=== PATIENT | male | born 1950 | race African-American/Black ===

== ENCOUNTER 2017-03-10 20:30 | Emergency (ER) | payer SELFPAY ==
[~2017-03-10] VITALS: Ht 185.4 cm; Wt 81.6 kg
[2017-03-10 20:30] VITALS: BP 130/89
--- NOTE | 2017-03-10 21:10 | Emergency Room Report ---
History of Present Illness General Chief Complaint: Alcohol Intoxication Source: Patient, EMS Present Illness HPI 66-year-old male brought in by EMS for "being cold" EMS states patient intoxicated however patient is alert and oriented, and ambulating with steady gait Patient refuses to provide additional history of present illness aside from repeating "I'm cold." When I continue to progress patient on additional information patient states "I' ll kick your ass." Patient then threatend to kill me. At this point, patient was escorted from EMR for threatening a physician. Allergies: Coded Allergies: PENICILLINS (Verified Allergy, Unknown, 03/10/17) Patient History Past Medical History: unable to obtain Past Surgical History: unable to obtain Pertinent Family History: unable to obtain Nursing Documentation-PMH Hx Hypertension: Yes History Of Psychiatric Problem: Yes Review of Systems All Other Systems: negative except mentioned in HPI Physical Exam Vital Signs Date Time Temp Pulse Resp B/P (MAP) Pulse Ox O2 Delivery O2 Flow Rate FiO2 03/10/17 20:25 98.4 58 20 138/92 98 Room Air Sp02 EP Interpretation: reviewed, normal General Appearance: normal inspection, well appearing, no apparent distress, alert, GCS 15, non-toxic, other - sleeping comfortably in stretcher Head: normocephalic, atraumatic Eyes: bilateral eye PERRL, bilateral eye EOMI ENT: normal ENT inspection, hearing grossly normal, normal pharynx, no angioedema, normal voice, TMs + canals normal, uvula midline, moist mucus membranes Neck: normal inspection, full range of motion, supple, thyroid normal, no meningismus, no bony tend Respiratory: normal inspection, lungs clear, normal breath sounds, no rhonchi, no respiratory distress, no retraction, no accessory muscle use, no wheezing, speaking full sentences Cardiovascular #1: regular rate, rhythm, no edema, no JVD, normal capillary refill Gastrointestinal: normal inspection, normal bowel sounds, non tender, soft, no mass, no peritonitis, non-distended, no guarding, no hernia, no pulsatile mass Genitourinary: no CVA tenderness Musculoskeletal: normal inspection, back normal, normal range of motion, no calf tenderness, pelvis stable, Nato's Sign negative Neurologic: normal inspection, alert, oriented x3, responsive, time study observer III-XII nml as tested, motor strength/tone normal, cerebellar normal, normal gait, speech normal Psychiatric: normal inspection, judgement/insight normal, mood/affect normal, no suicidal/homicidal ideation, no delusions Skin: normal inspection, normal color, no rash Lymphatic: normal inspection, no adenopathy Medical Decision Making Diagnostic Impression: Primary Impression: Malingerer Additional Impression: Threatening to others ER Course 66-year-old male likely malingering for stretcher Vital signs stable, afebrile Patient escorted from ER after threatening provider History of present illness and physical exam and assessment Limited due to patient's not cooperating and threatening demeanor ER course: Patient has remained stable during ED stay. Disposition: Patient is to be discharged to home. Patient is instructed to follow up with their primary care doctor within 5 days. Strict return precautions discussed with patient such as fever, chills, worsening/severe pain, nausea, vomiting, which may indicate severe illness. Patient verbalizes understanding and agrees with plan. Please note that this Emergency Department Report was dictated using [employer] application supervisor technology software, occasionally this can lead to erroneous entry secondary to interpretation by the dictation equipment Last Vital Signs Date Time Temp Pulse Resp B/P (MAP) Pulse Ox O2 Delivery O2 Flow Rate FiO2 03/10/17 20:25 98.4 58 20 138/92 98 Room Air Status: improved Disposition: HOME, SELF-CARE Condition: Improved Patient Instructions: Medical Screening Exam OSCAR SANCHES M.D. Mar 10, 2017 21:10
[2017-03-10 21:20] VITALS: BP 130/89
== END 2017-03-10 21:20 | disposition home or self-care (01) ==
LOC: EDBD 20:30 → EMR 20:50
DX: Z76.5 Malingerer [conscious simulation] (principal); F10.129 Alcohol abuse with intoxication, unspecified; I10 Essential (primary) hypertension; Z88.0 Allergy status to penicillin
CPT/HCPCS: 99282